=== PATIENT | male | born 1970 | race Caucasian/White ===

== ENCOUNTER 2024-12-19 12:49 | Outpatient (CLI) | payer BC | END 2024-12-19 12:50 | disposition home or self-care (01) | LOC: CSHLAB 12:49 | PROVIDERS: ATTEND Surgery | DX: Z01.818 Encounter for other preprocedural examination (principal); K43.9 Ventral hernia without obstruction or gangrene | CPT/HCPCS: 93005; 93010 ==

== ENCOUNTER 2024-12-23 05:51 | Day surgery (SDC) | payer BC ==
[2024-12-19 13:12] VITALS: BMI 36.6
[2024-12-23] MEDS ORDERED: CEFAZOLIN 2 GM VIAL ONE (06:47)
[2024-12-23] MEDS ORDERED: Bupivacaine/Epinephrine 0.25% 30 ML VIAL ONE (06:47)
[2024-12-23] MEDS ORDERED: PROPOFOL 20 ML ONE (07:23)
[2024-12-23] MEDS ORDERED: Rocuronium Bromide 10 MG/ML (10ML VIAL) ONE (07:24)
[2024-12-23] MEDS ORDERED: Lidocaine 1% PF 5 ML VIAL ONE (07:24)
[2024-12-23] MEDS ORDERED: SUGAMMADEX SODIUM 200 MG/2 ML VIAL ONE (08:31)
[2024-12-23] MEDS ORDERED: Ondansetron PF 4 MG/2 ML Vial ONE (08:31)
[2024-12-23] MEDS ORDERED: Ketorolac Tromethamine 30 MG (1 mL) VIAL ONE (08:31)
[2024-12-23] MEDS ORDERED: HYDROcodone/Acetaminophen 5/325 mg Tablet ONE (09:42)
== END 2024-12-23 10:11 | disposition home or self-care (01) ==
LOC: CSHSDC 05:51
PROVIDERS: ATTEND Surgery
PROC: 0WQF4ZZ Repair Abdominal Wall, Percutaneous Endoscopic Approach (ICD-10-PCS; principal; 2024-12-23)
DX: K43.2 Incisional hernia without obstruction or gangrene (principal); E78.00 Pure hypercholesterolemia, unspecified; E11.9 Type 2 diabetes mellitus without complications; E66.9 Obesity, unspecified; Z68.34 Body mass index [BMI] 34.0-34.9, adult; Z79.85 Long-term (current) use of injectable non-insulin antidiabetic drugs; Z87.891 Personal history of nicotine dependence; Z79.899 Other long term (current) drug therapy; Z88.4 Allergy status to anesthetic agent
CPT/HCPCS: C1781; J1885; J2175; J2704; S2900